=== PATIENT | female | born 1940 | race Caucasian/White ===

== ENCOUNTER 2016-09-27 10:54 | Inpatient (IN) | payer MEDICARE ==
--- NOTE | 2016-09-27 11:35 | EDPRACDOC ---
- General Information Chief Complaint: Bleeding (Rectal &/or other) Stated Complaint: VOMITING (BLOOD)/ BLOOD IN STOOL Time Seen by Provider: 09/27/16 11:19 Information Source: Patient, Family Home Medications: Home Medications Amlodipine Besylate 5 mg PO DAILY 06/17/13 Citalopram (anti-depressant) [Celexa] 20 mg PO DAILY 06/17/13 Levothyroxine [Synthroid, Levoxyl] 25 mcg PO DAILY 06/17/13 Losartan/Hydrochlorothiazide [Losartan-Hctz 100-25 mg Tab] 1 tab PO DAILY Potassium Chloride [Klor-Con M20] 20 meq PO DAILY 06/17/13 Metoprolol Succinate (XL) [Toprol Xl] 50 mg PO DAILY 03/14/16 Vitamins,Minerals,Iron [Hemocyte Plus] 1 tab PO BID 03/14/16 Ferrous Sulfate 324 mg PO TIDWM #30 tablet 03/17/16 Ca/D3/Mag Ox/Zinc/Legal Financial Specialist/Moi/Bor [Calcium 600+D3 Plus Caplet] 2 each PO DAILY 03/08 Lorazepam 1 mg PO HS PRN 09/27/16 [place]-3 Fatty Acids/Fish Oil [Fish Oil 1,000 mg Capsule] 1 each PO BID 09/27/16 Oxycodone HCl/Acetaminophen [Oxycodone-Acetaminophen 5-325] 1 tab PO .EVERY 4-6 HOURS PRN 09/27/16 Allergies/Adverse Reactions: Allergies Allergy/AdvReac Type Severity Reaction Status Date / Time Sulfa (Sulfonamide Allergy Unknown Hives* Verified 09/27/16 11:05 Antibiotics) codeine [Codeine] Allergy Nausea/Vomi Verified 09/27/16 11:05 ting Penicillins Allergy Nausea/Vomi Verified 09/27/16 11:05 ting Oiyjjro-Vne-Ixn Reductase Allergy Unknown Verified 09/27/16 11:05 Inhibitor - History of Present Illness Onset: YEST HPI: YESTERDAY MORNING HAD HEMATEMESIS AND BLACK STOOL. LAST TIME IN HOSPITAL FOR SAME THING. HAD EGD/COLONOSCOPY, HB WENT TO 7.4, 2 UNITS PRBC TRANSFUSED. NOTHING FOUND. PT FEELS WEAKNESS. PT HAD A FEW IBUPROFEN 2 DAYS AGO, SOME YESTERDAY. ED Past Medical History - Patient Medical History Cardiac History: Reports: Hypertension, Hypercholesterolemia. Denies: Cardiac Catheterization GI/ History: Reports: Diverticulosis (Gastritis) Musculoskeletal History: Reports: Arthritis, Osteoarthritis Psychological History: Reports: Anxiety. Denies: Depression, Substance Use Disorder Systemic History: Reports: Anemia, Hypothyroidism. Denies: Cancer Surgical History: Reports: Appendectomy, Hysterectomy, Tonsillectomy/ Adnoidectomy. Denies: Angioplasty, Cardiac Catheterization - Family Medical History Reports: Hypertension (mom,dad), Stroke (dad), Cardiac Disorders (dad). Denies : Diabetes, Cancer - Social Medical History Smoking Status: Never smoker Social History: Denies: Substance Use Disorder EDM Review of Systems - Review of Systems ROS Negative Except as Marked: Yes All systems reviewed and were negative except as marked Constitutional: Fatigue, Weakness Eyes: No Symptoms Reported Respiratory: No Symptoms Reported Cardiovascular: No Symptoms Reported Genitourinary: No Symptoms Reported Neurological: No Symptoms Reported Musculoskeletal: No Symptoms Reported Integumentary: No Symptoms Reported - Physical Exam Constitutional: Alert (Awake), No apparent distress Oriented to: Time, Person, Place Last recorded Vital Signs: Last Vital Signs Temp 98.0 F 09/27/16 11:05 Pulse 120 H 09/27/16 11:05 Resp 18 09/27/16 11:05 BP 151/60 09/27/16 11:05 Pulse Ox 100 09/27/16 11:05 Oxygen Pulse Oxygen Saturation 100 O2 Device Oxygen Flow Rate Fraction of Inspired Oxygen ( FIO2) - HEENT Head: Normal ( normocephalic) Eye Exam: Pale Conjunctiva Oropharynx: Normal (Pharynx:Moist without exudate,Gums-no swelling) Nose: No Symptoms Reported (septum midline) Neck: Normal (FROM, trachea at midline) - Respiratory/Cardiovascular Respiratory: Normal - CTA (BBS clear to auscultation without adventitious sounds ) Cardiovascular: Normal (RRR without murmur, gallop or rub) - GI Auscultation: Normal (NABS) Palpation: Normal (Soft,No rebound or guarding, non distended) Tenderness: Non tender Hinkle's Sign: Negative - Musculoskeletal Back: Normal (Non-Tender) Extremities: Normal (Normal tone, Pulses 2+ No cyanosis or edema, FROM) - Integumentary Skin: Normal, Warm, Dry Lymphatics: Normal (no adenopathy) - Neurologic Memory Impaired: Normal Motor Function: Normal (Normal tone, Pulses 2+ No cyanosis or edema, FROM) Cranial Nerve: Normal (CN II-X11 intact sensation, strength 5/5) Cerebellar: Normal Mood Description: Normal Perception: Normal - Results 09/27/16 11:17 09/27/16 11:17 - EKG EKG #1 EKG Time: 11:56 -: Yes EKG interpreted by me Rate: bpm: 104 Rhythm: ST Block: None Hypertrophy: None ST: Nonsp Comments: ABNORMAL EKG T INVERSION INFERIOR LEADS - Additional Information HEMOCCULT AND GASTROCCULT POSITIVE. + - Departure Yes I personally saw and evaluated the patient. Disposition: Admit IP To This Hospital Condition: Stable Final Diagnosis: Upper GI hemorrhage, Lower GI hemorrhage Decision to Admit Time: 12:48 Decision to admit date: 09/27/16 Decision to admit: from ED - Physician Consulted Hospitalist Time Called: 12:48 Provider Called: Guillermo Fox Time Patent Agent Returned Call: 12:48
[2016-09-27 11:50] LABS: AUTOMATED BASOPHIL 0.2 % (0-2); AUTOMATED EOSINOPHIL 2.3 % (0-5); AUTOMATED MONOCYTE 6.3 % (3-10); AUTOMATED NEUTROPHIL 82.2 % (45-76); MPV 7.9 fL (7.4-10.4)
[2016-09-27 12:03] LABS: PARTIAL THROMB. TIME 24.8 SEC (22-35)
[2016-09-27 12:05] LABS: BLOOD UREA NITROGEN 35 MG/DL (7-17); CALCIUM 8.8 MG/DL (8.4-10.2); CALCULATED OSMOLALITY 275 MOs/Kg (270-290); CHLORIDE 98 mEq/L (98-107); GLUCOSE 156 MG/DL (70-99); SODIUM LEVEL 137 mEq/L (137-146); TOTAL PROTEIN 6.7 G/DL (6.3-8.2)
--- NOTE | 2016-09-27 12:25 | DIRPT ---
CLINICAL DATA: Patient with history GI bleed. Weakness. EXAM: PORTABLE CHEST 1 VIEW COMPARISON: Chest radiograph 03/14/2016. FINDINGS: Stable cardiac and mediastinal contours. Large air and fluid-filled hiatal hernia. Minimal heterogeneous opacities left lung base. No pleural effusion or pneumothorax. Regional skeleton is unremarkable. IMPRESSION: Scarring and or atelectasis left lung base. Large hiatal hernia. Electronically Signed By: Humberto Danielle M.D. On: 09/27/2016 12:22
[2016-09-27] MEDS ORDERED: ACETAMINOPHEN 325 MG/TAB TABLET PO PRN (13:09)
[2016-09-27] MEDS ORDERED: PROMETHAZINE 25 MG/ML VIAL IV PRN (13:09)
[2016-09-27] MEDS ORDERED: ONDANSETRON HCL 4 MG/2 ML VIAL IV PRN (13:09)
[2016-09-27] MEDS ORDERED: BENZONATATE 100 MG PERLES PO PRN (13:09)
[2016-09-27] MEDS ORDERED: BISACODYL 10 MG SUPP PR PRN (13:09)
[2016-09-27] MEDS ORDERED: SENNA CONCENTRATE TAB PO PRN (13:09)
[2016-09-27] MEDS ORDERED: ACETAMINOPHEN 325 MG SUPP PR PRN (13:09)
[2016-09-27] MEDS ORDERED: ACETAMINOPHEN PO PRN (13:12)
[2016-09-27] MEDS ORDERED: OXYCODONE HCL PO PRN (13:12)
[2016-09-27] MEDS ORDERED: LORAZEPAM 1 MG TAB PO PRN (13:12)
[2016-09-27] MEDS ORDERED: [UNRECOGNIZED DRUG - OTHER] PO PRN (13:12)
[2016-09-27] MEDS: KCl 10 mEq/100 ml Premix (Run) 10 MEQ/100 ML RTU IV SCH ×6 (13:17→21:04)
[2016-09-27] MEDS ORDERED: OXYCODONE HCL 5 MG TABLET PO PRN (13:31)
--- NOTE | 2016-09-27 13:44 | HISTPHYS ---
- Chief Complaint Vomiting black material yesterday and passed black TARRY stool - History of Present Illness Patient very pleasant 76-year-old white female with history of recurrent GI bleeding and iron deficiency anemia who comes in today through the emergency room complaining of vomiting black material in also passing TARRY stool within the past 24 hours. She has a recurrent history of this and was last hospitalized in February getting a colonoscopy and EGD on the February that only showed hiatal hernia. She was hospitalized for 3 days at that point in time. I was called by Dr. Guadalupe today to admit her for her recurrent GI bleed. Her hemoglobin has dropped from August 21, 2014 2 8.5 now. She tells me she takes an occasional ibuprofen and also states that she no longer has a prescription for the Nexium she was taking for her GERD, so had stopped it. She contact her primary care provider yesterday but was quite reluctant to come into the emergency room until today. My concern is that compliance is also a significant issue with her. She seen Dr. Sesay in the past who has treated her for an deficiency anemia. She also says her mother had a history of GI bleeding and never could find her source of bleed. - Medical History Cardiac History: Reports: Hypertension, Hypercholesterolemia. Denies: Cardiac Catheterization Respiratory History: Reports: No Significant History GI/ History: Reports: Gastroesophageal Reflux, Diverticulosis (Gastritis) Musculoskeletal History: Reports: Arthritis, Osteoarthritis Systemic History: Reports: Anemia, Hypothyroidism. Denies: Cancer Neurological History: Reports: No Significant History Psychological History: Reports: Anxiety. Denies: Depression, Substance Use Disorder - Surgical History Reports: Appendectomy, Hysterectomy, Tonsillectomy/Adnoidectomy. Denies: Angioplasty, Cardiac Catheterization - Medictions/Allergies Allergies Sulfa (Sulfonamide Antibiotics) Allergy (Unknown, Verified 09/27/16 11:05) Hives* codeine [Codeine] Allergy (Verified 09/27/16 11:05) Nausea/Vomiting Penicillins Allergy (Verified 09/27/16 11:05) Nausea/Vomiting Nbavzci-Bbz-Okc Reductase Inhibitor Allergy (Verified 09/27/16 11:05) Unknown flu-like symptoms Current Medication List: Reviewed Home Medications Amlodipine Besylate 5 mg PO DAILY 06/17/13 Citalopram (anti-depressant) [Celexa] 20 mg PO DAILY 06/17/13 Levothyroxine [Synthroid, Levoxyl] 25 mcg PO DAILY 06/17/13 Losartan/Hydrochlorothiazide [Losartan-Hctz 100-25 mg Tab] 1 tab PO DAILY Potassium Chloride [Klor-Con M20] 20 meq PO DAILY 06/17/13 Metoprolol Succinate (XL) [Toprol Xl] 50 mg PO DAILY 03/14/16 Vitamins,Minerals,Iron [Hemocyte Plus] 1 tab PO BID 03/14/16 Ferrous Sulfate 324 mg PO TIDWM #30 tablet 03/17/16 Ca/D3/Mag Ox/Zinc/Funeral Service Licensee/Moi/Bor [Calcium 600+D3 Plus Caplet] 2 each PO DAILY 03/08 Lorazepam 1 mg PO HS PRN 09/27/16 [place]-3 Fatty Acids/Fish Oil [Fish Oil 1,000 mg Capsule] 1 each PO BID 09/27/16 Oxycodone HCl/Acetaminophen [Oxycodone-Acetaminophen 5-325] 1 tab PO .EVERY 4-6 HOURS PRN 09/27/16 - Family History Reports: Hypertension (mom,dad), Stroke (dad), Cardiac Disorders (dad). Denies : Diabetes, Cancer - Social History Travel Outside of [place] in the Last 3 Months?: No Lives: with Spouse, With Family Smoking Status: Never smoker Social History: Denies: Alcohol Use, Substance Use Disorder - Review of Systems Constitutional: Fatigue Eyes: No Symptoms Reported (No blurry vision, visual changes, eye pain, or eye redness.) Ears: No Symptoms Reported Nose: No Symptoms Reported (No nasal discharge/congestion or bleeding) Mouth: No Symptoms Reported (No oropharyngeal lesions or erythema) Throat/Neck: No Symptoms Reported (No throat pain or swelling.No oropharyngeal lesions or erythema.) Respiratory: Shortness of Breath (Mild). negative: Cough, Hemoptysis, Wheezing , Sputum, Asthma, Pleurisy Cardiovascular: No Symptoms Reported (No chest pain or palpitations.) Gastrointestinal: Nausea, Vomiting, Melena, Other (Claims to be vomiting black material) Genitourinary: No Symptoms Reported (No dysuria or hematuria.) Neurological: No Symptoms Reported (No headache, dizziness, seizures, or focal weakness.) Musculoskeletal:: Osteoarthritis Integumentary: No Symptoms Reported (no rashes or lesions) Allergic/Immunologic: No Symptoms Reported (no rashes or lesions) Hematologic: Easy Bleeding (Easy GI bleeding), Anemia, Past Transfusions, Other (Lymphatics- no lymph node swelling or pain.) Endocrine: No Symptoms Reported (No thyroid issues, polyuria, or polydipsia.) Psychiatric: No Symptoms Reported (Fully oriented, with normal and appropriate affect.) - Physical Exam Vital Signs: Initial Vitals Temperature 98.0 F 09/27/16 11:05 Pulse Rate 120 H 09/27/16 11:05 Respiratory Rate 18 09/27/16 11:05 Blood Pressure 151/60 09/27/16 11:05 Pulse Oxygen Saturation 100 09/27/16 11:05 Constitutional: Alert (Awake, Fully oriented. Normal and appropriate affect.Well appearing. Well nourished.), No apparent distress Oriented to: Time, Person, Place - HEENT Head: Normal (normocephalic, atraumatic.), Other (No cervical lymphadenopathy. No supraclavicular lymphadenopathy. Neck: No palpable mass, supple , trachea midline.) Eye: Normal (pupils equal, reactive to light, and round; EOMI, Sclera white) Oropharynx: Normal (Pharynx: Moist without exudate,Gums-no swelling, No oropharyngeal lesions or erythema, Mucous membranes are dry.) Tympanic Membrane: Normal (no discharge) ENT EAC: Normal (No oropharyngeal lesions or erythema. Mucous membranes are dry. ) TMJ: Normal Nose: No Symptoms Reported (septum midline, Nares patent, without discharge or bleeding.) Respiratory: Normal - CTA (Clear to auscultation bilaterally. No wheezing, rales , rhonchi. Chest wall movements are symmetric. No use of accessory muscles to breathe.) Cardiovascular: Normal (RRR , Normal S1, S2. No murmurs, rubs, or gallops. PMI non-displaced. Carotids: no carotid bruits. No bradycardia or tachycardia. DP pulses 2+ bilaterally.) - GI Auscultation: Normal (normal active sounds) Palpation: Normal (Soft,non distended,nontender. No hepatosplenomegaly.) Tenderness: Non tender (No rebound or guarding) Hinkle's Sign: Negative Stool: Tarry - Exam Deferred: Yes - Musculoskeletal Back: Normal (Non-Tender) Extremities: Normal (Normal tone, DP pulses 2+ bilaterally, No cyanosis or edema bilaterally, FROM bilaterally.) Spine: non-tender, normal alignment, limited range of motion - Integumentary Skin: Normal (Clean, dry, and intact. No rashes. No lesions.) Lymphatics: Normal (No cervical lymphadenopathy. No supraclavicular lymphadenopathy.) - Neurologic Memory Impaired: Normal Motor Function: Normal (Motor 5/5 throughout.Normal tone, Pulses 2+ No cyanosis or edema, FROM) Cranial Nerve: Normal (CN II-XII intact sensation, strength 5/5) Cerebellar: Normal (Babinski: toes downgoing bilaterally. Intact Finger to nose. Sensory grossly intact to light touch. Intact rapid alternating movements bilaterally. No pronator drift.) Mood Description: Normal (Fully oriented. Normal and appropriate affect.) Thought: Coherent Perception: Normal (Normal and appropriate affect.) - Focused CV Perfusion Exam Vital Signs: Last Vital Signs Temp 98.0 F 09/27/16 11:05 Pulse 111 09/27/16 13:25 Resp 20 09/27/16 13:25 BP 125/63 09/27/16 13:25 Pulse Ox 98 09/27/16 13:25 - Lab Results 09/27/16 11:17 09/27/16 11:17 Laboratory Results - last 24 hr 09/27/16 09/27/16 09/27/16 11:17 11:17 11:17 WBC 11.5 H RBC 2.85 L Hgb 8.5 L Hct 25.0 L MCV 88 MCH 29.6 MCHC 33.8 RDW 14.1 Plt Count 214 MPV 7.9 Neut % (Auto) 82.2 H Lymph % (Auto) 9.0 L [place] % (Auto) 6.3 Eos % (Auto) 2.3 Baso % (Auto) 0.2 Absolute Neuts (auto) 9.43 H Absolute Lymphs (auto) 1.04 PT INR APTT Sodium 137 Potassium 2.5 L Chloride 98 Carbon Dioxide 26 Anion Gap 16 BUN 35 H Creatinine 0.90 Estimated GFR (MDRD) > 60 Glucose 156 H Calculated Osmolality 275 Calcium 8.8 Total Bilirubin 0.5 AST 26 ALT 36 Alkaline Phosphatase 65 Troponin I < 0.01 Tnx-X-Bwzfkyomkms Pept 83 Total Protein 6.7 Albumin 4.0 Blood Type A POSITIVE Antibody Screen Negative 09/27/16 11:17 WBC RBC Hgb Hct MCV MCH MCHC RDW Plt Count MPV Neut % (Auto) Lymph % (Auto) [place] % (Auto) Eos % (Auto) Baso % (Auto) Absolute Neuts (auto) Absolute Lymphs (auto) PT 10.4 INR 1.0 APTT 24.8 Sodium Potassium Chloride Carbon Dioxide Anion Gap BUN Creatinine Estimated GFR (MDRD) Glucose Calculated Osmolality Calcium Total Bilirubin AST ALT Alkaline Phosphatase Troponin I Nny-Y-Eigvicyubyr Pept Total Protein Albumin Blood Type Antibody Screen - Assessment (1) Acute blood loss anemia D62 - ACUTE POSTHEMORRHAGIC ANEMIA Acute Present on Admission: Yes Patient has acute GI bleed and will likely require transfusion should hemoglobin fall below 8. Sequential hemoglobins will be necessary. Consultation Dr. Delvalle is undertaken and look forward to his input. (2) Upper GI hemorrhage K92.2 - GASTROINTESTINAL HEMORRHAGE, UNSPECIFIED Acute Present on Admission: Yes Dr. Delvalle consulted for GI bleed and transfusion will be necessary as her hemoglobin continues to drop. Monitoring of this will take place during hospitalization. Previously no source was found on last endoscopy and colonoscopy in February of 2016. (3) Generalized weakness R53.1 - WEAKNESS Acute Present on Admission: Yes Generalize weakness associated with her progressive anemia. (4) Hypokalemia E87.6 - HYPOKALEMIA Acute Present on Admission: Yes Continue to replete as needed. Monitor. IV potassium a ordered and check a magnesium. Concerned she will have difficulty tolerating oral potassium tablets so will try the liquid. Given her history of hypokalemia and hypertension will switch her thiazide diuretic to Aldactone. (5) Hypertension I10 - ESSENTIAL (PRIMARY) HYPERTENSION Chronic Present on Admission: Yes Qualifiers: Hypertension type: essential hypertension Qualified Code(s): I10 - Essential (primary) hypertension Continue medications but switch the thiazide diuretic to Aldactone due to recurrent hypokalemia and will monitor closely. (6) Hypothyroidism E03.9 - HYPOTHYROIDISM, UNSPECIFIED Chronic Present on Admission: Yes Qualifiers: Hypothyroidism type: acquired Qualified Code(s): E03.9 - Hypothyroidism, unspecified Continue Synthroid (7) Iron deficiency anemia D50.9 - IRON DEFICIENCY ANEMIA, UNSPECIFIED Chronic Qualifiers: Iron deficiency anemia type: chronic blood loss Qualified Code(s): D50.0 - Iron deficiency anemia secondary to blood loss (chronic) Well acute GI bleed is highly suspected a believe this is in the setting of baseline iron deficiency anemia contributing to patient 's overall anemia weakness and dizziness. Her serum iron level is low at 11 micrograms/deciliter. Will start p.o. supplementation now with ferrous sulfate at 325 mg p.o. t.i.d. after endoscopies have taken place. - Plan Due to the presence of and / or the risk of deterioration, my attendance to this patient required critical care time, including assessment/reassessment, documentation, ordering and interpreting ancillary studies, discussion with staff and consultants,patient and family, and excludes time spent on separately billable procedures. This individual is critically ill and in danger of dying. Case Care Discussed with: Patient, Family, Nursing Staff, Resource Management Total Time: Critical care time spent One Hour 24 minutes Critical Care: Yes Code: 291 (292)
[2016-09-27] MEDS ORDERED: Vaccine Screening Complete SCH (15:00)
[2016-09-27] MEDS: NS/KCl 20 mEq 1,000 ML IV SCH ×2 (15:34→21:04)
--- NOTE | 2016-09-27 20:22 | PCM.CONSGI ---
Consult Date: 09/27/16 Consult Requesting Physician: Nikko Alvarez Consult Reason: GI Bleed, Anemia - History of Present Illness Ms Galdamez is a 76-year-old female admitted an February for acute GI bleeding. Upper endoscopy and colonoscopy unrevealing. She resolves her anemia with iron replacement. She returns today with hematemesis and recurrent anemia with melena Upper endoscopy 03-11-16 large hiatal hernia no source of significant GI blood loss identified Colonoscopy 03-17-16 normal colonoscopy to the terminal ilium Ms Galdamez was seen by Dr. Sesay for anemia. She feels he has a family history of chronic anemia in her mother who require transfusion therapy. She does have reflux hypertension arthritis and has had a productive cough for several weeks. She has been taking occasional ibuprofen and has taken it for the 3 days prior to her admission. She was taking Nexium but changed Zantac which she takes occasionally for any reflux or dyspepsia symptoms. She is having no dysphagia. She normally does not have a problem with the decreased appetite. She felt a somewhat heal on in the early a.m.. She had a large volume dark stool emesis and loose melanotic stool. She has had a lot of nausea and some abdominal on rest but no further emesis. She did have 1 more bowel movement since her admission. She has tolerated liquids well. We reviewed her last hospitalizations or last procedures. She continues take iron once a day. This on with her GI upset. She was due to see Dr. Sesay on the for follow-up of her anemia. - Past Medical History Cardiac History: Reports: Hypertension, Hypercholesterolemia. Denies: Cardiac Catheterization Respiratory History: Reports: Cough GI/ History: Reports: Diverticulosis (Gastritis), GERD Musculoskeletal History: Reports: Arthritis Systemic History: Reports: Anemia, Hypothyroidism Psychological History: Reports: Anxiety. Denies: Alcoholism, Depression, Substance Use Disorder - Surgical History Past Surgical History: Reports: Appendectomy, Hysterectomy, Knee Surgery, T&A. Denies: Angioplasty - Procedure History Procedure History: Reports: Endoscopy (about 5 years ago), Colonoscopy (about 5 years ago). Denies: Bronchoscopy - Family History Family History: Reports: Cardiac Disorders (dad), Hypertension (mom,dad), Stroke (dad). Denies: Diabetes, Cancer, Seizures - Allergies Allergies Sulfa (Sulfonamide Antibiotics) Allergy (Unknown, Verified 09/27/16 11:05) Hives* codeine [Codeine] Allergy (Verified 09/27/16 11:05) Nausea/Vomiting Penicillins Allergy (Verified 09/27/16 11:05) Nausea/Vomiting Asfslex-Vfw-Xam Reductase Inhibitor Allergy (Verified 09/27/16 11:05) Unknown flu-like symptoms - Medications Home Medications Amlodipine Besylate 5 mg PO DAILY 06/17/13 Citalopram (anti-depressant) [Celexa] 20 mg PO DAILY 06/17/13 Levothyroxine [Synthroid, Levoxyl] 25 mcg PO DAILY 06/17/13 Losartan/Hydrochlorothiazide [Losartan-Hctz 100-25 mg Tab] 1 tab PO DAILY Potassium Chloride [Klor-Con M20] 20 meq PO DAILY 06/17/13 Metoprolol Succinate (XL) [Toprol Xl] 50 mg PO DAILY 03/14/16 Vitamins,Minerals,Iron [Hemocyte Plus] 1 tab PO BID 03/14/16 Ferrous Sulfate 324 mg PO TIDWM #30 tablet 03/17/16 Ca/D3/Mag Ox/Zinc/Glass Beveler/Moi/Bor [Calcium 600+D3 Plus Caplet] 2 each PO DAILY 03/08 Lorazepam 1 mg PO HS PRN 09/27/16 [place]-3 Fatty Acids/Fish Oil [Fish Oil 1,000 mg Capsule] 1 each PO BID 09/27/16 Oxycodone HCl/Acetaminophen [Oxycodone-Acetaminophen 5-325] 1 tab PO .EVERY 4-6 HOURS PRN 09/27/16 - Social History Lives: with Spouse, With Family Smoking Status: Never smoker Social History: Denies: Alcohol Use, Substance Use Disorder - Review of Systems Constitutional: Fever, Fatigue, Loss of Appetite, Weakness. negative: Weight loss Eyes: Uses Glasses/Contact lenses, Other (Poor vision). negative: Double Vision Ears: Hearing Loss Throat: Hoarseness. negative: Pain, Masses Nose: negative: Bleeding Respiratory: Cough. negative: Hemoptysis, Shortness of Breath Cardiovascular: negative: Chest Pain, Cyanosis, Edema Gastrointestinal: Nausea, Vomiting, Diarrhea, Melena, Other (Hematemesis) Genitourinary: negative: Dysuria, Hematuria Neurological: Gait Difficulty. negative: Dizziness, Seizure Musculoskeletal: Arthritis, Osteoarthritis Integumentary: negative: Bruising Allergic/Immunologic: negative: Itching Hematologic: Anemia. negative: Easy Bruising Endocrine: negative: Weight Gain, Weight Loss, Cold Intolerance Psychiatric: Anxiety. negative: Depression - Exam Vital Signs: Temperature: 98.3 F (09/27/16 19:37) HR: 111 (09/27/16 19:37) RR: 18 (09/27/16 19:37) BP: 125/51 (09/27/16 19:37) Pulse Ox: 98 (09/27/16 19:37) General: Alert, Oriented x3, No acute distress HEENT: negative: Icteric Sclera Respiratory: Normal - CTA, Accessory Muscle Use Cardiovascular: Regular rate Gastrointestinal: Soft, Bowel Sounds. negative: Distended, Tender Extremities: negative: Tenderness, Edema Skin: Warm,Dry and Intact. negative: No rashes Neurological: Normal speech Psych/Mental Status: Appropriate - Labs Result Diagrams: 09/27/16 11:17 09/27/16 11:17 - Assessment and Plan (1) Acute blood loss anemia Acute D62 - ACUTE POSTHEMORRHAGIC ANEMIA (2) Hematemesis Acute K92.0 - HEMATEMESIS unspecified K92.0 - Hematemesis (3) Melena Acute K92.1 - MELENA (4) Hypertension Chronic I10 - ESSENTIAL (PRIMARY) HYPERTENSION essential hypertension I10 - Essential (primary) hypertension (5) Hypokalemia Acute E87.6 - HYPOKALEMIA Recommendations: 1. Continue to monitor hemoglobin 2. Continue liquid diet 3. Ppi therapy 4. Avoid aspirin nonsteroidal anti-inflammatory 5. Continue care for other medical problems and balance electrolytes 6. If patient remained stable consider repeat upper endoscopy
[2016-09-27 20:40] LABS: % SATURATION 3.2 % (15-50)
[2016-09-27] MEDS ORDERED: FUROSEMIDE 40 MG/4 ML VIAL IV ONE (21:00)
[2016-09-27] MEDS: VITS,MINERALS,IRON TAB PO SCH (21:24)
[2016-09-27 21:38] LABS: FOLATES 14.2 ng/mL (>2.76)
[2016-09-27] MEDS ORDERED: IBUPROFEN 600 MG TAB PO ONE (23:00)
[2016-09-27] MEDS ORDERED: Magnesium Sulfate 2 gm/D5W 2 GM/50 ML RTU IV ONE (23:00)
[2016-09-27] MEDS: POTASSIUM CHLORIDE 20 MEQ/15 ML ORAL SOLN PO SCH (23:17)
[2016-09-27 23:48] LABS: AUTOMATED BASOPHIL 0.3 % (0-2); AUTOMATED EOSINOPHIL 0.4 % (0-5); AUTOMATED LYMPH 14.4 % (17-44); AUTOMATED MONOCYTE 8.6 % (3-10); AUTOMATED NEUTROPHIL 76.3 % (45-76); MPV 8.2 fL (7.4-10.4)
[2016-09-28] MEDS: POTASSIUM CHLORIDE 20 MEQ/15 ML ORAL SOLN PO SCH ×2 (00:26→02:18)
[2016-09-28] MEDS: ACETAMINOPHEN 325 MG/TAB TABLET PO PRN (01:45)
[2016-09-28 04:47] LABS: BLOOD UREA NITROGEN 12 MG/DL (7-17); CALCULATED OSMOLALITY 266 MOs/Kg (270-290); CHLORIDE 107 mEq/L (98-107); GLUCOSE 131 MG/DL (70-99); SODIUM LEVEL 137 mEq/L (137-146)
[2016-09-28] MEDS: NS/KCl 20 mEq 1,000 ML IV SCH ×2 (05:49→07:50)
[2016-09-28] MEDS: PANTOPRAZOLE 40 MG TAB PO SCH ×2 (06:20→16:25)
[2016-09-28] MEDS: LEVOTHYROXINE 25 MCG (0.025 MG) TAB PO SCH (06:21)
[2016-09-28] MEDS ORDERED: FLU VACCINE (Afluria) 0.5 ML DOSE IM ONE (08:00)
--- NOTE | 2016-09-28 08:19 | GENMEDPROG ---
Chief Complaint: Patient seen earlier this morning but just had endoscopy done showing ulcers at the base of her hiatal hernia which warrants the continued use of proton pump inhibition. She states she is feeling better but did have black TARRY stool overnight. Notes Reviewed: Yes Events from last night noted and discussed with Clinical Staff Current Medication List: Reviewed DVT Prophylaxis: Yes (SCDs) - Physical Examination Vital Signs and I&O: Last Vital Signs Temp 98.0 F 09/28/16 08:15 Pulse 82 09/28/16 08:15 Resp 16 09/28/16 08:15 BP 149/63 09/28/16 08:15 Pulse Ox 97 09/28/16 06:05 Oxygen Pulse Oxygen Saturation 97 O2 Device Nasal Cannula Oxygen Flow Rate 1 Fraction of Inspired Oxygen ( FIO2) Intake & Output 09/25/16 09/26/16 09/27/16 09/28/16 23:59 23:59 23:59 23:59 Intake Total 910 1573 Output Total 950 Balance -40 1573 Patient's weight 61.099 kg 61.717 kg General: Alert, No acute distress, Well appearing, Well nourished. negative: Oriented x3 HEENT: Normal (Normocephalic, atraumatic;EOMI.Sclera white, Nares patent, without discharge or bleeding. No oropharyngeal lesions or erythema. Mucous membranes are dry.) Neck: Non-tender, Normal Trachea alignment, Normal inspection (No cervical lymphadenopathy. No supraclavicular lymphadenopathy.), No Masses palpable, Limited range of motion, Supple Lymphatics: Normal (No cervical lymphadenopathy. No supraclavicular lymphadenopathy.) Respiratory: Normal - CTA (Clear to auscultation bilaterally. No wheezing, rales , rhonchi. Chest wall movements are symmetric. No use of accessory muscles to breathe.) Cardiovascular: Normal S1, No Gallops,Rubs/Murmurs, Normal S2, Irregular GI: Normal bowel sounds (normal active sounds), Soft (non-distended), Non tender , No hepatospenomegaly, No masses Extremities/Musculoskeletal: Normal pulses (DP pulses 2+ bilaterally) Skin: Warm,Dry and Intact, No rashes, No significant lesion Neurological: Strength at 5/5 X4 ext (Motor 5/5 throughout.), Normal tone, Cranial nerves 3-12 NL ( 2-12 grossly intact.) Psych/Mental Status: Appropriate, Normal Affect Lab/DI/Studies Reviewed: 09/28/16 12:59 09/28/16 03:40 Laboratory Results - last 24 hr 09/27/16 09/27/16 09/27/16 11:17 17:25 17:25 WBC RBC Hgb Hct MCV MCH MCHC RDW Plt Count MPV Neut % (Auto) Lymph % (Auto) [place] % (Auto) Eos % (Auto) Baso % (Auto) Absolute Neuts (auto) Absolute Lymphs (auto) Platelet Estimate RBC Morphology Sodium Potassium Chloride Carbon Dioxide Anion Gap BUN Creatinine Estimated GFR (MDRD) Glucose Calculated Osmolality Calcium Magnesium 1.60 Iron TIBC % Saturation Ferritin Troponin I 0.02 Vitamin B12 Serum Folate Urine Color Urine Clarity Urine pH Ur Specific [place] Urine Protein Urine Glucose (UA) Urine Ketones Urine Occult Blood Urine Nitrite Urine Bilirubin Urine Urobilinogen Ur Leukocyte Esterase Urine RBC Urine WBC Ur Epithelial Cells Urine Bacteria Blood Type A POSITIVE Antibody Screen Negative Crossmatch See Detail 09/27/16 09/27/16 09/27/16 20:00 20:00 23:15 WBC 7.5 RBC 2.26 L Hgb 6.8 L* D 6.8 L* Hct 19.7 L 19.8 L MCV 88 MCH 29.9 MCHC 34.0 RDW 14.1 Plt Count 165 MPV 8.2 Neut % (Auto) 76.3 H Lymph % (Auto) 14.4 L [place] % (Auto) 8.6 Eos % (Auto) 0.4 Baso % (Auto) 0.3 Absolute Neuts (auto) 5.70 Absolute Lymphs (auto) 1.05 Platelet Estimate Large plts present RBC Morphology 1+ polychrom Sodium Potassium Chloride Carbon Dioxide Anion Gap BUN Creatinine Estimated GFR (MDRD) Glucose Calculated Osmolality Calcium Magnesium Iron 11.0 L TIBC 340 % Saturation 3.2 L Ferritin 26.3 Troponin I Vitamin B12 489 Serum Folate 14.20 Urine Color Urine Clarity Urine pH Ur Specific [place] Urine Protein Urine Glucose (UA) Urine Ketones Urine Occult Blood Urine Nitrite Urine Bilirubin Urine Urobilinogen Ur Leukocyte Esterase Urine RBC Urine WBC Ur Epithelial Cells Urine Bacteria Blood Type Antibody Screen Crossmatch 09/28/16 09/28/16 09/28/16 03:40 12:59 15:15 WBC 7.9 RBC 3.56 L Hgb 10.4 L D Hct 31.1 L MCV 87 MCH 29.2 MCHC 33.4 RDW 15.2 H Plt Count 169 MPV 7.6 Neut % (Auto) Lymph % (Auto) Franklin % (Auto) Eos % (Auto) Baso % (Auto) Absolute Neuts (auto) Absolute Lymphs (auto) Platelet Estimate RBC Morphology Sodium 137 Potassium 5.4 H D Chloride 107 Carbon Dioxide 24 Anion Gap 11 BUN 12 Creatinine 0.70 Estimated GFR (MDRD) > 60 Glucose 131 H Calculated Osmolality 266 L Calcium 8.0 L Magnesium 2.30 Iron TIBC % Saturation Ferritin Troponin I Vitamin B12 Serum Folate Urine Color Pale yellow Urine Clarity Clear Urine pH 6.0 Ur Specific [place] 1.005 Urine Protein Neg Urine Glucose (UA) Neg Urine Ketones Neg Urine Occult Blood 3+ H Urine Nitrite Neg Urine Bilirubin Neg Urine Urobilinogen <2.0 Ur Leukocyte Esterase Neg Urine RBC 0-2 Urine WBC 0-2 Ur Epithelial Cells Occ Urine Bacteria Few Blood Type Antibody Screen Crossmatch - Assessment (1) Acute blood loss anemia Acute D62 - ACUTE POSTHEMORRHAGIC ANEMIA Comment/Plan: Patient has acute GI bleed and did require transfusion with a hemoglobin dropping 6.8 now over 10. Sequential hemoglobins will be necessary. Consultation Dr. Delvalle showed ulcers in the bases of her hiatal hernia today which warrants administration of p.o. Protonix twice daily and avoidance of NSAIDs which I have recommended to her yesterday. Compliance is an issue here. (2) Upper GI hemorrhage Acute K92.2 - GASTROINTESTINAL HEMORRHAGE, UNSPECIFIED Comment/Plan: Dr. Delvalle consulted for GI bleed and transfusion will be necessary as her hemoglobin continues to drop. Monitoring of this will take place during hospitalization. Previously no source was found on last endoscopy and colonoscopy in February of 2016. (3) Generalized weakness Acute R53.1 - WEAKNESS Comment/Plan: Generalize weakness associated with her progressive anemia. (4) Hypokalemia Acute E87.6 - HYPOKALEMIA Comment/Plan: Continue to replete as needed. Monitor. IV potassium a ordered and check a magnesium. Concerned she will have difficulty tolerating oral potassium tablets so will try the liquid. Given her history of hypokalemia and hypertension will switch her thiazide diuretic to Aldactone. (5) Hypertension Chronic I10 - ESSENTIAL (PRIMARY) HYPERTENSION Qualifiers: Hypertension type: essential hypertension Qualified Code(s): I10 - Essential (primary) hypertension Comment/Plan: Continue medications but switch the thiazide diuretic to Aldactone due to recurrent hypokalemia and will monitor closely. (6) Hypothyroidism Chronic E03.9 - HYPOTHYROIDISM, UNSPECIFIED Qualifiers: Hypothyroidism type: acquired Qualified Code(s): E03.9 - Hypothyroidism, unspecified Comment/Plan: Continue Synthroid (7) Iron deficiency anemia Chronic D50.9 - IRON DEFICIENCY ANEMIA, UNSPECIFIED Qualifiers: Iron deficiency anemia type: chronic blood loss Qualified Code(s): D50.0 - Iron deficiency anemia secondary to blood loss (chronic) Comment/Plan: Well acute GI bleed is highly suspected a believe this is in the setting of baseline iron deficiency anemia contributing to patient 's overall anemia weakness and dizziness. Her serum iron level is low at 11 micrograms/ deciliter. Will start p.o. supplementation now with ferrous sulfate at 325 mg p.o. t.i.d. after endoscopies have taken place. Disposition Plan: Home stable and advised not to stop her Protonix/Nexium and to forever avoid NSAIDs. Case Care Discussed with: Patient, Nursing Staff Education/Counseling Given To: Patient Education/Counseling Given Regarding: Diagnosis Total Time: 40 min Critical Care: No Code: 11996 (12+)
[2016-09-28] MEDS ORDERED: HYDROCHLOROTHIAZIDE 25 MG TAB PO SCH (09:00)
[2016-09-28] MEDS ORDERED: [UNRECOGNIZED DRUG - OTHER] PO SCH (09:00)
[2016-09-28] MEDS ORDERED: LOSARTAN PO SCH (09:00)
[2016-09-28] MEDS ORDERED: HYDROCHLOROTHIAZIDE PO SCH (09:00)
[2016-09-28] MEDS ORDERED: [UNRECOGNIZED DRUG - OTHER] PO SCH (09:00)
[2016-09-28] MEDS ORDERED: FUROSEMIDE 40 MG/4 ML VIAL IV ONE (09:00)
[2016-09-28] MEDS ORDERED: DIPHENHYDRAMINE 50 MG/ML VIAL ONE (09:48)
[2016-09-28] MEDS ORDERED: MIDAZOLAM 5 MG/5 ML VIAL ONE (09:48)
[2016-09-28] MEDS ORDERED: MEPERIDINE 25 MG/ML TUBEX ONE (09:48)
[2016-09-28] MEDS ORDERED: NS 1,000 ML IV ONE (10:28)
--- NOTE | 2016-09-28 11:29 | HIMOPRPT ---
DATE OF PROCEDURE: 09/28/16 PROCEDURE: Esophagogastroduodenoscopy with biopsy. INDICATIONS: Hematemesis anemia iron deficiency. INSTRUMENTS: Olympus video upper endoscope. MEDICATIONS: Versed 5 mg IV and Demerol 25 mg IV. PHYSICAL EXAMINATION: GENERAL: The patient was in no distress. VITAL SIGNS: Stable. CHEST: Clear CARDIAC: Regular rate and rhythm. ABDOMEN: [Nondistended, nontender]. NEUROLOGIC: The patient was alert and oriented. DESCRIPTION OF PROCEDURE: Ms Galdamez was placed in a left lateral position and IV sedation was given in small incremental doses for the patient's comfort for moderate sedation. The throat was anesthetized with Cetacaine spray.The endoscope was advanced without difficulty into the duodenum. ESOPHAGUS: Esophagus had gastroesophageal junction located at 30 cm. The GE junction was well distended. The distal esophagus was not inflamed]. STOMACH: [Stomach had a large hiatal hernia. Likely a 3rd to half the gastrium was in the chest. At the base of the hiatal hernia were multiple small somewhat linear ulcers. All had bland bases. There was no blood present in the stomach. The antrum was inflamed with no ulcerations. DUODENUM: [The duodenum was normal.. Antral biopsies were obtained for H. pylori testing. Small bowel biopsies were obtained for histology. The patient tolerated the procedure well. Patient did have a lot of yellow to greenish respiratory secretions noted during the procedure IMPRESSION: 1. Multiple small ulcers at the base of the hiatal hernia all with bland bases 2. Large hiatal hernia 3. Gastritis in the antrum RECOMMENDATIONS: 1. Continue PPI therapy b.i.d. 2. Antacids liberally 3. [place] diet 4. Awaiting pathology 5. Continue to monitor for active bleeding 6. Continue to monitor hemoglobin 7. Consider therapy for her respiratory infection
[2016-09-28 13:13] LABS: MPV 7.6 fL (7.4-10.4)
[2016-09-28] MEDS: SPIRONOLACTONE 25 MG TAB PO SCH (13:39)
[2016-09-28] MEDS: LOSARTAN POTASSIUM 50 MG TAB PO SCH (13:40)
[2016-09-28] MEDS: AMLODIPINE 5 MG TAB PO SCH (13:40)
[2016-09-28] MEDS: VITS,MINERALS,IRON TAB PO SCH ×2 (13:40→21:12)
[2016-09-28] MEDS: CALCIUM CARBONATE + VITAMIN D 500 MG TAB PO SCH (13:41)
[2016-09-28] MEDS: METOPROLOL (TOPROL-XL) 50 MG TAB PO SCH (13:41)
[2016-09-28 16:27] LABS: LEUKOCYTES/URINE NEG (NEGATIVE); NITRITE/URINE NEG (NEGATIVE); RBC/URINE 0-2 (0-5); URINE OCCULT BLOOD 3+ (NEG/TRACE); WBC/URINE 0-2 (0-5)
[2016-09-28] MEDS: SODIUM CHLORIDE 0.9% 3 ML FLUSH FLUSH SCH (18:28)
[2016-09-29 03:37] LABS: MPV 8.4 fL (7.4-10.4)
[2016-09-29] MEDS: LEVOTHYROXINE 25 MCG (0.025 MG) TAB PO SCH (05:21)
[2016-09-29] MEDS: PANTOPRAZOLE 40 MG TAB PO SCH ×2 (05:21→17:46)
[2016-09-29] MEDS: SODIUM CHLORIDE 0.9% 3 ML FLUSH FLUSH SCH ×2 (05:21→17:47)
[2016-09-29] MEDS ORDERED: FERUMOXYTOL 510 MG in NS 100 ML IV ONE (08:00)
[2016-09-29] MEDS: SPIRONOLACTONE 25 MG TAB PO SCH (08:14)
[2016-09-29] MEDS: AMLODIPINE 5 MG TAB PO SCH (08:15)
[2016-09-29] MEDS: CALCIUM CARBONATE + VITAMIN D 500 MG TAB PO SCH (08:15)
[2016-09-29] MEDS: LOSARTAN POTASSIUM 50 MG TAB PO SCH (08:15)
[2016-09-29] MEDS: VITS,MINERALS,IRON TAB PO SCH ×2 (08:15→20:09)
[2016-09-29] MEDS: METOPROLOL (TOPROL-XL) 50 MG TAB PO SCH (08:15)
--- NOTE | 2016-09-29 11:31 | GENMEDPROG ---
Chief Complaint: Mild nausea. no pain. Ambulated some. Notes Reviewed: Yes Events from last night noted and discussed with Clinical Staff Current Medication List: Reviewed Currently: Reports: Nausea and Vomiting. Denies: Cough, Wheezing, CALLE, SOB, Abdominal Pain, Chest Pain DVT Prophylaxis: Yes (SCDs) - Physical Examination Vital Signs and I&O: Last Vital Signs Temp 98.1 F 09/29/16 11:13 Pulse 83 09/29/16 11:13 Resp 18 09/29/16 11:13 BP 118/53 L 09/29/16 11:13 Pulse Ox 93 09/29/16 11:13 Oxygen Pulse Oxygen Saturation 93 O2 Device Room Air Oxygen Flow Rate 2 Fraction of Inspired Oxygen ( FIO2) Intake & Output 09/26/16 09/27/16 09/28/16 09/29/16 23:59 23:59 23:59 23:59 Intake Total 910 2903 440 Output Total 950 1600 1200 Balance -40 1303 -760 Patient's weight 61.099 kg 61.717 kg 60.951 kg General: Alert, No acute distress, Well appearing, Well nourished. negative: Oriented x3 HEENT: Normal (Normocephalic, atraumatic;EOMI.Sclera white, Nares patent, without discharge or bleeding. No oropharyngeal lesions or erythema. Mucous membranes are dry.) Neck: Non-tender, Normal Trachea alignment, Normal inspection (No cervical lymphadenopathy. No supraclavicular lymphadenopathy.), No Masses palpable, Limited range of motion, Supple Lymphatics: Normal (No cervical lymphadenopathy. No supraclavicular lymphadenopathy.) Respiratory: Normal - CTA (Clear to auscultation bilaterally. No wheezing, rales , rhonchi. Chest wall movements are symmetric. No use of accessory muscles to breathe.) Cardiovascular: Normal S1, No Gallops,Rubs/Murmurs, Normal S2, Irregular GI: Normal bowel sounds (normal active sounds), Soft (non-distended), Non tender , No hepatospenomegaly, No masses Extremities/Musculoskeletal: Normal pulses (DP pulses 2+ bilaterally) Skin: Warm,Dry and Intact, No rashes, No significant lesion Neurological: Strength at 5/5 X4 ext (Motor 5/5 throughout.), Normal tone, Cranial nerves 3-12 NL ( 2-12 grossly intact.) Psych/Mental Status: Appropriate, Normal Affect, Cooperative Lab/DI/Studies Reviewed: Laboratory Results - last 24 hr 09/28/16 09/28/16 09/29/16 15:15 21:35 03:00 WBC 9.8 RBC 3.49 L Hgb 10.8 L 10.3 L Hct 31.4 L 30.3 L MCV 87 MCH 29.7 MCHC 34.2 RDW 15.3 H Plt Count 189 MPV 8.4 Urine Color Pale yellow Urine Clarity Clear Urine pH 6.0 Ur Specific [place] 1.005 Urine Protein Neg Urine Glucose (UA) Neg Urine Ketones Neg Urine Occult Blood 3+ H Urine Nitrite Neg Urine Bilirubin Neg Urine Urobilinogen <2.0 Ur Leukocyte Esterase Neg Urine RBC 0-2 Urine WBC 0-2 Ur Epithelial Cells Occ Urine Bacteria Few - Assessment (1) Upper GI hemorrhage Acute K92.2 - GASTROINTESTINAL HEMORRHAGE, UNSPECIFIED Comment/Plan: Hemoglobin stable. Continue to monitor. Increase activity. Ambulate in the halls. Likely discharge tomorrow if hemoglobin remains stable. (2) Acute blood loss anemia Acute D62 - ACUTE POSTHEMORRHAGIC ANEMIA Comment/Plan: Gastric ulcers base hiatal hernia likely source of GI blood loss. Hemoglobin stable the last 2 days. She did receive IV iron (3) Generalized weakness Acute R53.1 - WEAKNESS Comment/Plan: Generalize weakness associated with her progressive anemia. (4) Hypokalemia Acute E87.6 - HYPOKALEMIA Comment/Plan: Replete as needed (5) Hypertension Chronic I10 - ESSENTIAL (PRIMARY) HYPERTENSION Qualifiers: Hypertension type: essential hypertension Qualified Code(s): I10 - Essential (primary) hypertension Comment/Plan: Continue home medications and monitor (6) Hypothyroidism Chronic E03.9 - HYPOTHYROIDISM, UNSPECIFIED Qualifiers: Hypothyroidism type: acquired Qualified Code(s): E03.9 - Hypothyroidism, unspecified Comment/Plan: Continue Synthroid (7) Iron deficiency anemia Chronic D50.9 - IRON DEFICIENCY ANEMIA, UNSPECIFIED Qualifiers: Iron deficiency anemia type: chronic blood loss Qualified Code(s): D50.0 - Iron deficiency anemia secondary to blood loss (chronic) Comment/Plan: Received IV iron. Encourage close follow-up as outpatient Case Care Discussed with: Patient, Consultants, Nursing Staff, Resource Management
--- NOTE | 2016-09-29 13:41 | PCM.GIPROG ---
Progress Note (GI) Chief Complaint: Ms Galdamez is a 76-year-old female admitted an February for acute GI bleeding. Upper endoscopy and colonoscopy unrevealing. She resolves her anemia with iron replacement. She returns today with hematemesis and recurrent anemia with melena Upper endoscopy 09-28-16 ulcers multiple at the base of a hiatal hernia mild gastritis large hiatal hernia Upper endoscopy 03-11 large hiatal hernia no source of significant GI blood loss identified Colonoscopy 03-17-16 normal colonoscopy to the terminal ilium Ms. Galdamez has no complaints today. She is tolerating her diet well. She received IV Feraheme today. She had no problems with this. She ambulated in the miranda yesterday. Hopefully discharge soon. We reviewed her upper endoscopy. We discussed not taking aspirin and nonsteroidal anti- inflammatories again in detail. The importance of taking PPI therapy was also discussed - Physical Exam Vital Signs: Temperature: 98.1 F (09/29/16 11:13) HR: 82 (09/29/16 13:20) RR: 18 (09/29/16 11:13) BP: 118/53 (09/29/16 11:13) Pulse Ox: 93 (09/29/16 11:13) General: Alert, Oriented x3, No acute distress HEENT: Icteric Sclera Gastrointestinal: Soft, Bowel Sounds. negative: Distended, Tender Skin: Warm,Dry and Intact Neurological: Normal speech Psych/Mental Status: Appropriate Result Diagrams: 09/29/16 03:00 09/28/16 03:40 Additional Lab/DI Findings: Laboratory Tests 09/27/16 09/28/16 09/28/16 23:15 12:59 21:35 Hgb 6.8 L* 10.4 L D 10.8 L H pylori negative GAURANG test - Impression and Plan (1) Acute blood loss anemia Acute D62 - ACUTE POSTHEMORRHAGIC ANEMIA Present on Admission: Yes Comment: Gastric ulcers base hiatal hernia likely source of GI blood loss (2) Hematemesis Acute K92.0 - HEMATEMESIS unspecified K92.0 - Hematemesis (3) Melena Acute K92.1 - MELENA (4) Hypertension Chronic I10 - ESSENTIAL (PRIMARY) HYPERTENSION Present on Admission: Yes essential hypertension I10 - Essential (primary) hypertension (5) Hypokalemia Acute E87.6 - HYPOKALEMIA Present on Admission: Yes Plan: 1. Ppi therapy 2. Avoid aspirin nonsteroidal anti-inflammatories medication 3. [place] diet 4. Continue care for other medical problems 5. Tylenol if needed for pain 6. I can follow as an outpatient if needed
[2016-09-30] MEDS: ACETAMINOPHEN 325 MG/TAB TABLET PO PRN (03:44)
[2016-09-30 04:15] VITALS: BMI 27.3
[2016-09-30] MEDS: PANTOPRAZOLE 40 MG TAB PO SCH (05:58)
[2016-09-30] MEDS: SODIUM CHLORIDE 0.9% 3 ML FLUSH FLUSH SCH (05:58)
[2016-09-30] MEDS: LEVOTHYROXINE 25 MCG (0.025 MG) TAB PO SCH (05:58)
[2016-09-30] MEDS: LOSARTAN POTASSIUM 50 MG TAB PO SCH (08:18)
[2016-09-30] MEDS: SPIRONOLACTONE 25 MG TAB PO SCH (08:18)
[2016-09-30] MEDS: AMLODIPINE 5 MG TAB PO SCH (08:18)
[2016-09-30] MEDS: CALCIUM CARBONATE + VITAMIN D 500 MG TAB PO SCH (08:18)
[2016-09-30] MEDS: VITS,MINERALS,IRON TAB PO SCH (08:18)
[2016-09-30] MEDS: METOPROLOL (TOPROL-XL) 50 MG TAB PO SCH (08:19)
--- NOTE | 2016-09-30 09:38 | PCM.DCS92 ---
- Final/Secondary Discharge Diagnosis (1) Upper GI hemorrhage Acute K92.2 - GASTROINTESTINAL HEMORRHAGE, UNSPECIFIED Present on Admission: Yes Comment: Doing well. Hemoglobin stable at 10.8. Will discharge home. (2) Acute blood loss anemia Acute D62 - ACUTE POSTHEMORRHAGIC ANEMIA Present on Admission: Yes Comment: Gastric ulcers base hiatal hernia likely source of GI blood loss. Hemoglobin stable at 10.8. Status post IV iron. (3) Generalized weakness Acute R53.1 - WEAKNESS Present on Admission: Yes Comment: Overall improved and ready for discharge home. (4) Hypokalemia Acute E87.6 - HYPOKALEMIA Present on Admission: Yes Comment: Replete as needed (5) Hypertension Chronic I10 - ESSENTIAL (PRIMARY) HYPERTENSION Present on Admission: Yes essential hypertension I10 - Essential (primary) hypertension Comment: Continue home medications and monitor (6) Hypothyroidism Chronic E03.9 - HYPOTHYROIDISM, UNSPECIFIED Present on Admission: Yes acquired E03.9 - Hypothyroidism, unspecified Comment: Continue Synthroid (7) Iron deficiency anemia Chronic D50.9 - IRON DEFICIENCY ANEMIA, UNSPECIFIED chronic blood loss D50.0 - Iron deficiency anemia secondary to blood loss ( chronic) Comment: Received IV iron. Encourage close follow-up as outpatient Discharge Disposition: Home Discharge Condition: Improved Fuctional Discharge Status: Independent Physician Follow up/Referrals: Abelardo Thapa MD [Primary Care Provider] - 1-2 weeks Drew Delvalle MD [Staff Physician] - 1-2 weeks New Prescriptions: Ferrous Sulfate 324 mg PO DAILY #30 tablet Lorazepam 1 mg PO HS PRN #14 tablet PRN Reason: Anxiety Pantoprazole Sodium [Protonix] 40 mg PO 0600,1800 #60 tablet Discharge Home Medication List Amlodipine Besylate 5 mg PO DAILY 06/17/13 [History Confirmed 09/28/16 Last Taken 09/26/16] Citalopram (anti-depressant) [Celexa] 20 mg PO DAILY 06/17/13 [History Confirmed 09/28/16 Last Taken 09/25/16] Levothyroxine [Synthroid, Levoxyl] 25 mcg PO DAILY 06/17/13 [History Confirmed 09/28/16 Last Taken 09/25/16] Losartan/Hydrochlorothiazide [Losartan-Hctz 100-25 mg Tab] 1 tab PO DAILY [History Confirmed 09/28/16 Last Taken 09/26/16] Potassium Chloride [Klor-Con M20] 20 meq PO DAILY 06/17/13 [History Confirmed Last Taken 03/17/16 10:00] Metoprolol Succinate (XL) [Toprol Xl] 50 mg PO DAILY 03/14/16 [History Confirmed 09/28/16 Last Taken 09/26/16] Vitamins,Minerals,Iron [Hemocyte Plus] 1 tab PO BID 03/14/16 [History Confirmed 09/28/16 Last Taken 09/26/16] Ca/D3/Mag Ox/Zinc/Security Rep/Moi/Bor [Calcium 600-D3 Plus Caplet] 2 each PO DAILY 03/08 [History Confirmed 09/28/16 Last Taken Unknown] [place]-3 Fatty Acids/Fish Oil [Fish Oil 1,000 mg Capsule] 1 each PO BID 09/27/16 [History Confirmed 09/28/16 Last Taken Unknown] Oxycodone HCl/Acetaminophen [Oxycodone-Acetaminophen 5-325] 1 tab PO .EVERY 4-6 HOURS PRN 09/27/16 [History Confirmed 09/28/16 Last Taken Unknown] Ferrous Sulfate 324 mg PO DAILY #30 tablet 09/30/16 [Rx Last Taken Unknown] Lorazepam 1 mg PO HS PRN #14 tablet 09/30/16 [Rx Last Taken Unknown] Pantoprazole Sodium [Protonix] 40 mg PO 0600,1800 #60 tablet 09/30/16 [Rx Last Taken Unknown] O2 Device: Room Air Diet at Discharge: Heart Healthy, [place] Activity: As Tolerated Call Office For: Worsening Symptoms - DC Summary Notes Hospital Course Note:: Discharge summary on patient named DORENE HERNDON admitted to [facility] on 09/27/16 by Nikko Alvarez MD. Date of discharge is []. Total Time: 45 minutes - Physical Exam Vital Signs: Last Vital Signs Temp 97.3 F L 09/30/16 08:38 Pulse 82 09/30/16 08:08 Resp 18 09/30/16 08:38 BP 140/70 09/30/16 08:00 Pulse Ox 92 09/30/16 04:00 Oxygen Pulse Oxygen Saturation 92 O2 Device Room Air Oxygen Flow Rate 2 Fraction of Inspired Oxygen ( FIO2) Constitutional: No apparent distress, Alert (Awake, Fully oriented. Normal and appropriate affect.Well appearing. Well nourished.), Well nourished, Well appearing Oriented to: Time, Person, Place - HEENT Head: Normal (normocephalic, atraumatic.), Other (No cervical lymphadenopathy. No supraclavicular lymphadenopathy. Neck: No palpable mass, supple , trachea midline.) Eye: Normal (pupils equal, reactive to light, and round; EOMI, Sclera white) Oropharynx: Normal (Pharynx: Moist without exudate,Gums-no swelling, No oropharyngeal lesions or erythema, Mucous membranes are dry.) Tympanic Membrane: Normal (no discharge) ENT EAC: Normal (No oropharyngeal lesions or erythema. Mucous membranes are dry. ) TMJ: Normal Nose: No Symptoms Reported (septum midline, Nares patent, without discharge or bleeding.) - Respiratory/Cardiovascular Respiratory: Normal - CTA (Clear to auscultation bilaterally. No wheezing, rales , rhonchi. Chest wall movements are symmetric. No use of accessory muscles to breathe.) Cardiovascular: Normal - GI Auscultation: Normal (normal active sounds) Palpation: Normal (Soft,non distended,nontender. No hepatosplenomegaly.) Tenderness: Non tender (No rebound or guarding) Hinkle's Sign: Negative Stool: Tarry - Musculoskeletal Back: Normal (Non-Tender) Extremities: Normal (Normal tone, DP pulses 2+ bilaterally, No cyanosis or edema bilaterally, FROM bilaterally.) - Integumentary Skin: Warm, Dry Lymphatics: Normal (No cervical lymphadenopathy. No supraclavicular lymphadenopathy.) - Neurologic Memory Impaired: Normal Motor Function: Normal Cranial Nerve: Normal Cerebellar: Normal (Babinski: toes downgoing bilaterally. Intact Finger to nose. Sensory grossly intact to light touch. Intact rapid alternating movements bilaterally. No pronator drift.) Mood Description: Normal (Fully oriented. Normal and appropriate affect.) Thought: Coherent Perception: Normal (Normal and appropriate affect.)
--- NOTE | 2016-09-30 10:25 | PCM.GIPROG ---
Progress Note (GI) Chief Complaint: Ms Galdamez is a 76-year-old female admitted an February for acute GI bleeding. Upper endoscopy and colonoscopy unrevealing. She resolves her anemia with iron replacement. She returns today with hematemesis and recurrent anemia with melena Upper endoscopy 09-28-16 ulcers multiple at the base of a hiatal hernia mild gastritis large hiatal hernia Upper endoscopy 03-11-16 large hiatal hernia no source of significant GI blood loss identified Colonoscopy 03-17-16 normal colonoscopy to the terminal ilium Ms. Galdamez has no complaints today. She is tolerating her diet well. She received IV Feraheme yesterday without difficulty. She ambulated in the miranda yesterday multiple times without difficulty. We reviewed her upper endoscopy. We discussed not taking aspirin and nonsteroidal anti-inflammatories again in detail. The importance of taking PPI therapy was also discussed - Physical Exam Vital Signs: Temperature: 97.3 F (09/30/16 08:38) HR: 82 (09/30/16 08:08) RR: 18 (09/30/16 08:38) BP: 140/70 (09/30/16 08:00) Pulse Ox: 92 (09/30/16 04:00) General: Alert, Oriented x3. negative: No acute distress HEENT: negative: Icteric Sclera Respiratory: negative: Accessory Muscle Use Gastrointestinal: Soft, Bowel Sounds. negative: Distended, Tender Extremities: negative: Edema Skin: Warm,Dry and Intact Neurological: Normal speech Psych/Mental Status: Appropriate Result Diagrams: 09/30/16 03:50 09/28/16 03:40 - Impression and Plan (1) Acute blood loss anemia Acute D62 - ACUTE POSTHEMORRHAGIC ANEMIA Present on Admission: Yes Comment: Gastric ulcers base hiatal hernia likely source of GI blood loss. Status post IV iron. (2) Hematemesis Acute K92.0 - HEMATEMESIS unspecified K92.0 - Hematemesis (3) Melena Acute K92.1 - MELENA (4) Hypertension Chronic I10 - ESSENTIAL (PRIMARY) HYPERTENSION Present on Admission: Yes essential hypertension I10 - Essential (primary) hypertension (5) Hypokalemia Acute E87.6 - HYPOKALEMIA Present on Admission: Yes Plan: 1. Ppi therapy b.i.d. for 1 month then Q the 2. Likely restart oral iron 3. Monitor hemoglobin closely and for recurrent bleeding 4. Continue to follow up with Dr. Sesay 5. No aspirin nonsteroidal anti-inflammatory medication 6. Tylenol for pain 7. I can follow as an outpatient if needed
[2016-09-30 12:03] VITALS: BP 138/67; TEMP 98.2
[2016-09-30 14:18] VITALS: PULSE 75
== END 2016-09-30 14:22 | disposition home or self-care (01) | DRG 378 ==
LOC: ED 10:54 → PCU 13:08
PROVIDERS: ADMIT Internal Medicine; ATTEND Hospitalist
PROC: 0DB78ZX Excision of Stomach, Pylorus, Via Natural or Artificial Opening Endoscopic, Diagnostic (ICD-10-PCS; principal; 2016-09-28)
PROC: 0DB88ZX Excision of Small Intestine, Via Natural or Artificial Opening Endoscopic, Diagnostic (ICD-10-PCS; 2016-09-28)
PROC: 30233N1 Transfusion of Nonautologous Red Blood Cells into Peripheral Vein, Percutaneous Approach (ICD-10-PCS; 2016-09-28)
DX: K25.4 Chronic or unspecified gastric ulcer with hemorrhage (principal); D62 Acute posthemorrhagic anemia; I10 Essential (primary) hypertension; K44.9 Diaphragmatic hernia without obstruction or gangrene; K29.70 Gastritis, unspecified, without bleeding; R53.1 Weakness; E87.6 Hypokalemia; E03.9 Hypothyroidism, unspecified; E78.00 Pure hypercholesterolemia, unspecified; K21.9 Gastro-esophageal reflux disease without esophagitis; M19.90 Unspecified osteoarthritis, unspecified site; F41.9 Anxiety disorder, unspecified; Z88.0 Allergy status to penicillin; Z88.2 Allergy status to sulfonamides; Z88.8 Allergy status to other drugs, medicaments and biological substances; Z88.5 Allergy status to narcotic agent; Z79.899 Other long term (current) drug therapy; Z23 Encounter for immunization; D50.8 Other iron deficiency anemias
CPT/HCPCS: 36415; 36430; 43239; 71010; 80048; 80053; 81001; 82607; 82728; 82746; 83540; 83550; 83735; 83880; 84484; 85014; 85018; 85025; 85027; 85610; 85730; 86850; 86900; 86901; 86920; 87040; 87081; 87086; 87804; 90471; 90656; 93005; 99284; J1200; J1940; J2175; J2250; J2405; J3475; J3480; J3490; J7030; J7040; P9016; Q0138